=== PATIENT | male | born 1980 | race Caucasian/White ===

== ENCOUNTER 2016-12-24 20:28 | Emergency (ER) | payer OTHER ==
[2016-12-24] MEDS ORDERED: IBUPROFEN 600 MG TAB PO ONE (21:13)
[2016-12-24 21:36] VITALS: BP 116/82; PULSE 90; RESP 18; TEMP 100.6; O2SAT 98
--- NOTE | 2016-12-24 21:54 | UCPHY ---
H & P Time Seen by Provider: 12/24/16 21:19 Patient Type: Established HPI/ROS: 36-year-old male with complaint of fevers chills nasal congestion cough body aches, as well as sinus congestion and facial pain over his maxillary sinuses. He has been taking Augmentin for approximately 4-1/2 days and is here today because he is concerned that he still has a fever. Review of systems As per HPI General positive fever positive chills no weakness HEENT no eye pain no eye discharge. No eye redness, no sore throat Respiratory positive cough, no shortness of breath Cardiac no chest pain, no peripheral edema GI no abdominal pain, no diarrhea, no constipation, no nausea, no vomiting no flank pain, no hematuria, no dysuria Musculoskeletal positive myalgias, no joint pain Heme no easy bruising, no easy bleeding Endo no polyuria, no polydipsia Skin no rashes, no pruritus Neuro no syncope, no dizziness, no headaches Psych is no suicidal ideation, no homicidal ideation Past Medical/Surgical History: Noncontributory Social History: to a physician, 3 small children ages to 2,4,7 Smoking Status: Never smoked Physical Exam: Alert and oriented nontoxic appearance, no acute distress afebrile Atraumatic normocephalic Extraocular muscles intact, anicteric Nares mild yellowish discharge, nasal turbinates swelling right greater than left Oropharynx mild erythema no tonsillar swelling no exudate no uvular deviation, tolerating own secretions Neck supple no lymphadenopathy Lungs clear to auscultation bilaterally Heart regular rate and rhythm Abdomen normoactive bowel sounds soft nontender Extremities no cyanosis clubbing or edema Skin no rash Constitutional: Initial Vital Signs Temperature (C) 38.1 C 12/24/16 21:00 Heart Rate 90 12/24/16 21:00 Respiratory Rate 18 12/24/16 21:00 Blood Pressure 116/82 H 12/24/16 21:00 O2 Sat (%) 98 12/24/16 21:00 O2 Delivery Mode Room Air Allergies/Adverse Reactions: No Known Allergies Allergy (Unverified 12/24/16 21:19) Home Medications: Medication Instructions Recorded Fluticasone Nasal [Flonase Nasal 2 sprays NASAL BID #1 mdi 12/24/16 [place]] Moxifloxacin [Avelox 400 mg (*)] 400 mg PO DAILY #10 tab 12/24/16 Medical Decision Making - Diagnostics Imaging: Chest x-ray negative ED Course/Re-evaluation: Patient seen and evaluated for cold symptoms, sinus congestion, facial pain, fever. Rapid strep negative Influenza negative Chest x-ray consistent with bronchitis no pneumonia Labs CBC within normal limits CMP mildly elevated LFTs Impression Sinusitis Plan Moxifloxacin Fluticasone Follow-up PCP - Data Points Laboratory Results: Laboratory Results 12/24/16 21:55 12/24/16 21:55 12/24/16 Unknown Group A Strep DNA POSITIVE H (NEGATIVE) Medications Given: Discontinued Medications Sodium Chloride (Ns) 1,000 mls @ 0 mls/hr IV ONCE ONE PRN Reason: Wide Open Stop: 12/24/16 22:00 Last Admin: 12/24/16 22:00 Dose: 1,000 mls Ibuprofen (Motrin) 600 mg PO EDNOW ONE Stop: 12/24/16 21:14 Last Admin: 12/24/16 21:19 Dose: 600 mg Departure - Departure Disposition: Home, Routine, Self-Care Clinical Impression: Acute bacterial sinusitis Condition: Good Instructions: Sinusitis (ED) Referrals: NONE *PRIMARY CARE P,. [Primary Care Provider] - As per Instructions Prescriptions: Moxifloxacin [Avelox 400 mg (*)] 400 mg PO DAILY #10 tab Fluticasone Nasal [Flonase Nasal [place]] 2 sprays NASAL BID #1 mdi - PQRS PQRS Measurement: na
[2016-12-24] MEDS ORDERED: NS 1,000 ML IV ONE (21:59)
[2016-12-24 22:03] LABS: % IMMATURE GRANULYOCYTES 0.3 % (0.0-1.1); ABSOLUTE IMMATURE GRANULOCYTES 0.03 10^3/uL (0.00-0.10); ADD DIFF? NO; ADD MORPH? NO; ADD SCAN? NO; ATYPICAL LYMPHOCYTE FLAG 60 (0-99); FRAGMENT RBC FLAG 0 (0-99); HEMATOCRIT 41.2 % (40.0-51.0); HEMOGLOBIN 13.8 g/dL (13.7-17.5); LEFT SHIFT FLG 0 (0-99); LIPEMIA HEMOLYSIS FLAG 80 (0-99); MEAN CELL HEMOGLOBIN 30.2 pg (27.9-34.1); MEAN CELL HEMOGLOBIN CONCENTR. 33.5 g/dL (32.4-36.7); MEAN CELL VOLUME 90.2 fL (81.5-99.8); MEAN PLATELET VOLUME 8.8 fL (8.7-11.7); PLATELET CLUMPS FLAG 10 (0-99); PLATELET COUNT 293 10^3/uL (150-400); RED BLOOD CELL COUNT 4.57 10^6/uL (4.40-6.38)
--- NOTE | 2016-12-24 22:13 | DX ---
PA and Lateral Chest History: Fever, sinus infection. Comparison: None available. Findings: Portions of the costophrenic angles are excluded from both views. There is mild peribronchi al thickening without focal consolidation. There is no pneumothorax or pleural effusion. The heart an d pulmonary vasculature are normal. Mild degenerative change is present in the spine. Impression: Mild peribronchial thickening suggesting airways disease/bronchitis.
[2016-12-24 22:20] LABS: ALANINE AMINOTRANSFERASE 74 IU/L (21-72); ALBUMIN 3.4 g/dL (3.5-5.0); ALKALINE PHOSPHATASE 131 IU/L (38-126); ANION GAP 12 mEq/L (8-16); ASPARTATE AMINOTRANSFERASE 40 IU/L (17-59); BILIRUBIN,TOTAL 0.7 mg/dL (0.1-1.4); CALCIUM 9.4 mg/dL (8.5-10.4); CARBON DIOXIDE 26 mEq/l (22-31); CHLORIDE 99 mEq/L (97-110); CREATININE 1.1 mg/dL (0.7-1.3); GLOMERULAR FILTRATION RATE > 60; GLUCOSE 109 mg/dL (70-100); POTASSIUM 4.4 mEq/L (3.5-5.2); SODIUM 137 mEq/L (134-144); TOTAL PROTEIN 7.3 g/dL (6.3-8.2)
== END 2016-12-24 22:52 | disposition home or self-care (01) ==
LOC: CED 20:28
DX: R50.9 Fever, unspecified (principal); R09.81 Nasal congestion; R05 Cough; M79.1 Myalgia
CPT/HCPCS: 71020-PO; 80053-PO; 85025-PO; 86308-PO; 87400-PO; 87880-PO; 96360-PO; 99214-PO; G0463-PO